=== PATIENT | male | born 1970 | race African-American/Black ===

== ENCOUNTER 2016-06-01 06:20 | Emergency (ER) | payer OTHER ==
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
[2016-06-01 07:34] VITALS: BP 143/88
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
[2016-06-01] MEDS ORDERED: MELOXICAM15 M1 PO (08:08)
== END 2016-06-01 08:21 ==
LOC: ERH 06:20
DX: S63.502A Unspecified sprain of left wrist, initial encounter (principal); W22.01XA Walked into wall, initial encounter
CPT/HCPCS: 73130-LT